=== PATIENT | female | born 2000 | race Two or more races ===

== ENCOUNTER 2022-07-06 10:05 | Day surgery (SDC) | payer OTHER ==
[~2022-07-06] VITALS: Ht 160 cm; Wt 54.4 kg
[2022-07-06] MEDS ORDERED: fentaNYL citrate 0.05 MG/ML VIAL ONE (11:40)
[2022-07-06] MEDS ORDERED: MIDAZOLAM 5 MG/5 ML VIAL ONE (11:41)
[2022-07-06] MEDS ORDERED: MIDAZOLAM 2 MG/2 ML VIAL IVP ONE (13:20)
== END 2022-07-06 12:42 | disposition home or self-care (01) ==
LOC: MDS 10:05 → MMU 10:08 → MDS 12:42
PROVIDERS: ATTEND Internal Medicine Gastroenterology
DX: R11.2 Nausea with vomiting, unspecified (principal); F41.9 Anxiety disorder, unspecified; F32.A Depression, unspecified; Z20.822 Contact with and (suspected) exposure to COVID-19; Z79.899 Other long term (current) drug therapy
CPT/HCPCS: 43235; 87426; J2250; J3010